=== PATIENT | female | born 1965 | race Caucasian/White ===

== ENCOUNTER 2018-02-10 18:45 | Emergency (ER) | payer MEDICAID ==
[~2018-02-10] VITALS: Ht 157.5 cm; Wt 45.4 kg
[~2018-02-10 18:45] MED LIST: ALPR.25T PO; ALPR0.5T72 PO; ALPR1T PO; AMIT50TA3 PO; ARPZ10T PO; CLOP75TA PO; CPR500T PO; DIVA500T15 PO; DVL250TEC PO; ESCI20TA2 PO; FLUT1DIS26 IH; GABA100T PO; HYDR-1231 PO; HYDR-3583 PO; METR500T PO; NAPR220C PO; NAPR250T2 PO; OMG1KC PO; PATANOL OU; PHN100C PO; PREN1TAB83 PO; PRM25T PO; QUET150T PO; RT-COMBINH INH; TRH2T PO; ZLP10T PO; ZLP5T PO
[2018-02-10] MEDS ORDERED: ONDANSETRON 4 MG (ZOFRAN) ORAL DISSOLVE TAB PO ONE (19:30)
[2018-02-10] MEDS ORDERED: KETOROLAC 30 MG/ML VIAL IM ONE (19:30)
--- NOTE | 2018-02-10 19:32 | ED Chest Pain ---
General Chief Complaint: Chest Wall/Rib Pain Stated Complaint: RIB PAIN L SIDE Nursing Triage Note: PT REPORTS L SIDED RIB PAIN AFTER FRIEND "BEAR HUGGED" HER 4 DAYS AGO. Nursing Sepsis Screen: No Definite Risk Source: patient, other Exam Limitations: no limitations History of Present Illness Date Seen by Provider: Feb 10, 2018 Time Seen by Provider: 19:28 Initial Comments Patient resents to the ER by private conveyance with a chief complaint that 3 days ago she says her cousin picked her up and bear hug her and celebration for some reason and she felt a popping cracking sound in her left chest anterior mid nipple line about rib number 9 or 10. Since that time she's taken 2 Tylenol every day and has not use any icy hot, creams, hot, cold, however she did try wrapping an Sergey bandage around her ribs with minimal improvement in her pain. She says the pain was so severe today that it made her fall to her knees and call and then she vomited because of the pain. She still having a little nausea. 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 Allergies and Home Medications Allergies Coded Allergies: aspirin (Verified Allergy, Unknown, 09/16/05) azithromycin (Unverified Allergy, Unknown, N/V, 06/19/14) Home Medications Alprazolam 1 Mg Tablet, 1 TAB PO TID, (Reported) Escitalopram Oxalate 20 Mg Tablet, 40 MG PO DAILY, (Reported) Fluticasone/Salmeterol 1 Disk Inhp, 1 PUFF IH BID, (Reported) 1 PUFF Hydrocodone Bit/Acetaminophen 1 Tab Tablet, 1 TAB PO Q6H PRN for PAIN Prescribed by: ABRAHAM ALLEN on 03/27/14 1358 Phenytoin Sodium 100 Mg Cap, 100 MG PO BID, (Reported) Patient Home Medication List Home Medication List Reviewed: Yes Review of Systems Constitutional: No chills, No diaphoresis, No fever, No malaise EENTM: No Blurred Vision, No Double Vision Respiratory: Denies Cough; Shortness of Air; Denies Wheezing Cardiovascular: See HPI, Chest Pain; Denies Edema, Denies Irregular Heart Rate Gastrointestinal: Denies See HPI, Denies Constipated, Denies Diarrhea; Nausea, Vomiting (x1) Genitourinary: Denies Drainage, Denies Frequency Musculoskeletal: No joint swelling, No muscle pain, No muscle stiffness Skin: No dryness, No pruritus, No rash Psychiatric/Neurological: Denies Headache, Denies Numbness, Denies Paresthesia Past Akfanrc-Jovvdv-Mxzlge Hx Patient Social History Alcohol Use: Denies Use 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) Smoking Status: Current Everyday Smoker Type Used: Cigarettes Recent Foreign Travel: No Contact w/Someone Who Travel: No Recent Infectious Disease Expo: No Recent Hopitalizations: Yes (DARION) Physical Abuse: No Sexual Abuse: No Mistreated: No Fear: No Immunizations Up To Date Tetanus Booster (TDap): Unknown Past Medical History Surgeries: Yes (gallbladder sling, hernia repair, removed kidney stones) Gallbladder, Hysterectomy Respiratory: Yes Asthma, Emphysema Cardiac: Yes (hypotension) Neurological: No Reproductive Disorders: 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 Physical Exam Vital Signs Vital Signs - First Documented 02/10/18 19:18 Temp 97.7 Pulse 68 Resp 16 B/P (MAP) 112/69 (83) Pulse Ox 95 Capillary Refill : Less Than 3 Seconds Height, Weight, BMI Height: 5'2.00" Weight: 100lbs. oz. 45.139258oq; BMI Method:Stated General Appearance: No Apparent Distress, WD/WN HEENT: PERRL/EOMI, Normal ENT Inspection, Pharynx Normal Neck: Full Range of Motion, Normal Inspection, Non Tender, Supple Respiratory: Lungs Clear, Normal Breath Sounds, No Accessory Muscle Use, No Respiratory Distress, Other (tenderness to palpation ribs 9 and 10 and 11 under the left breast anteriorly.) Cardiovascular: Regular Rate, Rhythm, No Edema Gastrointestinal: Normal Bowel Sounds, Non Tender, Soft Neurologic/Psychiatric: Alert, Oriented x3 Skin: Ecchymosis (left anterior thigh but not on the chest wall) Progress/Results/Core Measures Results/Orders My Orders Orders - DARRICK JAMES Ketorolac Injection (Toradol Injection) (02/10/18 19:30) Ribs, Left 2-3 Views (02/10/18 19:26) Ondansetron Oral Dissolve Tab (Zofran (02/10/18 19:30) Medications Given in ED Current Medications Medications Dose Ordered Sig/Daniel Route Start Time Stop Time Status Last Admin Dose Admin Ketorolac Tromethamine 30 mg ONCE ONCE IM 02/10/18 19:30 02/10/18 19:31 DC 02/10/18 19:45 30 MG Ondansetron HCl 4 mg ONCE ONCE PO 02/10/18 19:30 02/10/18 19:31 DC 02/10/18 19:44 4 MG Vital Signs/I&O 02/10/18 19:18 Temp 97.7 Pulse 68 Resp 16 B/P (MAP) 112/69 (83) Pulse Ox 95 Blood Pressure Mean: 83 Progress Progress Note : Time: 19:32 Progress Note I can hear breath sounds organ he get a chest x-ray to make sure there is not a small pneumothorax given her history of COPD and possible cracked rib. Ketorolac and Zofran. Diagnostic Imaging Diagonstic Imaging: CT Plain Films/CT/US/NM/MRI: chest (l ribs) Comments [facility] [place], [place] NAME: SAVITA BERKOWITZ [facility] REC#: [id number] PT STATUS: REG ER : 1965 PHYSICIAN: DARRICK JAMES MD ADMIT DATE: 02/10/18/ER Draft Date of Exam:02/10/18 RIBS, LEFT 2-3 VIEWS Clinical indication: Patient with left lateral rib pain in mid rib area after friend bear hugged 4 days ago. Exam: X-ray of the left ribs, 3 views. Comparison: X-ray of the right ribs and chest dated 03/27/2014. Findings and impression: There is no rib fracture. There is no significant abnormality seen on this exam. Dictated on workstation # [id number] Dict: 02/10/181948 Trans: 02/10/181953 EMMA [id number] Interpreted by: RAMEZ FRANCISCO MD Electronically signed by: Reviewed: Reviewed by Me Departure Impression Primary Impression: Contusion of rib Qualified Codes: S20.212A - Contusion of left front wall of thorax, initial encounter Disposition: 01 HOME, SELF-CARE Condition: Stable Departure-Patient Inst. Decision time for Depature: 20:13 Referrals: NO,LOCAL PHYSICIAN (PCP/Family) Primary Care Physician Patient Instructions: Bruised Rib (DC) Add. Discharge Instructions: You don't need to wrap your ribs which you may benefit from an ice pack applied directly over the site where it hurts alternated with heat. You can use ibuprofen 800 mg every 8 hours as well as Tylenol 1000 g every 8 hours as needed for pain. Try and preemptively treat your pain so doesn't get so bad. All discharge instructions reviewed with patient and/or family. Voiced understanding. DARRICK JAMES Feb 10, 2018 19:32
--- NOTE | 2018-02-10 19:55 | Diagnostic Imaging Report ---
Clinical indication: Patient with left lateral rib pain in mid rib area after friend bear hugged 4 days ago. Exam: X-ray of the left ribs, 3 views. Comparison: X-ray of the right ribs and chest dated 03/27/2014. Findings and impression: There is no rib fracture. There is no significant abnormality seen on this exam. Dictated by: Dictated on workstation # [id number]
[2018-02-10 20:24] VITALS: BP 115/65
== END 2018-02-10 20:24 | disposition home or self-care (01) ==
LOC: EDUNIT# 18:45 → ER 18:46
DX: S20.212A Contusion of left front wall of thorax, initial encounter (principal); J43.9 Emphysema, unspecified; F32.9 Major depressive disorder, single episode, unspecified; F17.210 Nicotine dependence, cigarettes, uncomplicated; Z96.0 Presence of urogenital implants; Z87.442 Personal history of urinary calculi; Z85.43 Personal history of malignant neoplasm of ovary; Z90.710 Acquired absence of both cervix and uterus; Z88.6 Allergy status to analgesic agent; Z88.0 Allergy status to penicillin; Z79.51 Long term (current) use of inhaled steroids; X50.0XXA Overexertion from strenuous movement or load, initial encounter
CPT/HCPCS: 71100; 96372

== ENCOUNTER → 2018-11-02 | Outpatient (CLI) | payer MEDICAID | LOC: CARD 10:41 | PROVIDERS: ATTEND Internal Medicine Cardiovascular Disease | DX: R07.9 Chest pain, unspecified (principal); I47.2 Ventricular tachycardia; R00.2 Palpitations; R55 Syncope and collapse; F17.220 Nicotine dependence, chewing tobacco, uncomplicated | CPT/HCPCS: 93306 ==

== ENCOUNTER 2022-12-05 12:38 | Emergency (ER) | payer MEDICAID ==
[~2022-12-05] VITALS: Ht 170 cm; Wt 45.0 kg
[2022-12-05 12:40] VITALS: BP 149/91
--- NOTE | 2022-12-05 12:54 | ED Lower Extremity ---
General Chief Complaint: Lower Extremity Stated Complaint: BILAT ANKLE INJ Nursing Triage Note: PT TO RM 5 PER W\\C PT CRYING STATES FELL FROM LADDER WHEN PAINTING AT 0530 THIS AM. PT STATES HAD GOTTEN DIZZY AND FELL FROM LADDER STATES WAS TALLER THAN SHE IS. PT STATES DID HIT HEAD AND MAY HAVE LOC. PT CO OF SEVERE BILATERALY ANKLE PAIN STATES FELL ON STANDING UP Source: patient Exam Limitations: no limitations History of Present Illness Date Seen by Provider: December 05, 2022 Time Seen by Provider: 12:40 Initial Comments 57-year-old female presents to the ED with complaints of bilateral ankle pain and swelling. She states that this morning around 5:30 AM she was on a ladder and was painting, states she got dizzy and fell off the ladder. She states that she often gets dizzy due to heights. She denies any current dizziness. States she thinks she passed out for couple of seconds. States she hit her head, denies any head pain at this time. She reports 1 episode of vomiting, thinks it was due to anxiety. Patient is very anxious at this time. She denies fevers, chest pain, shortness of air, abdominal pain, diarrhea. Past medical history includes peripheral artery disease and heart disease. Allergies and Home Medications Allergies Coded Allergies: aspirin (Verified Allergy, Unknown, 09/16/05) azithromycin (Unverified Allergy, Unknown, N/V, 06/19/14) Patient Home Medication List Home Medication List Reviewed: Yes Albuterol/Ipratropium (Combivent Common Canister) 1 Puff Puff, 1 PUFF INH, (Reported) Entered as Reported by: MANOHAR METCALF on 02/16/14 0726 Alprazolam (Xanax) 1 Mg Tablet, 1 TAB PO TID, (Reported) Entered as Reported by: BESS BOBO on 03/30/12 1058 Escitalopram Oxalate (Lexapro) 20 Mg Tablet, 40 MG PO DAILY, (Reported) Entered as Reported by: JAGDISH DARLING on 02/03/11 0751 Fluticasone/Salmeterol (Advair 250 Mcg/50 Mcg 60's) 1 Disk Inhp, 1 PUFF IH BID, (Reported) Entered as Reported by: SARAH INTERIANO on 03/18/11 1435 Hydrocodone Bit/Acetaminophen (Hydrocodone-Apap 5-325 Tablet) 1 Tab Tablet, 1 TAB PO Q6H PRN for PAIN Prescribed by: ABRAHAM ALLEN on 03/27/14 1358 Hydrocodone/Acetaminophen (Hydrocodone-Acetamin 10-325 mg) 10 Mg-325 Mg Tablet, 1 EACH PO Q6H Prescribed by: Phoebe Riggs on 12/05/22 1449 Phenytoin Sodium (Dilantin Capsule) 100 Mg Cap, 100 MG PO BID, (Reported) Entered as Reported by: MANOHAR METCALF on 02/16/14 0728 Review of Systems Constitutional: see HPI Past Siwclez-Fgkmkk-Qzpwxi Hx Patient Social History Tobacco Use?: Yes Tobacco type used: Cigarettes Smoking Status: Current Everyday Smoker Substance use?: No Alcohol Use?: No Pt feels they are or have been: No Immunizations Up To Date Tetanus Booster (TDap): Unknown Influenza Vaccine Up-to-Date: No; Not Current First/Initial COVID19 Vaccinat: YES Second COVID19 Vaccination Ric: YES Past Medical History Surgery/Hospitalization HX: HYST, GB, APPY,HERNIA Surgeries: Yes (gallbladder sling, hernia repair, removed kidney stones) Gallbladder, Hysterectomy Respiratory: Yes Asthma, Emphysema Cardiac: Yes (hypotension) Neurological: No 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 Physical Exam Vital Signs Vital Signs - First Documented 12/05/22 12:40 Temp 36.5 Pulse 97 Resp 18 B/P (MAP) 149/91 (110) Pulse Ox 99 Capillary Refill : Less Than 3 Seconds Height, Weight, BMI Height: 5'2.00" Weight: 100lbs. oz. 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 as tested, alert, normal mood/affect Skin: normal color, warm/dry Progress/Results/Core Measures Results/Orders My Orders Orders - PHOEBE RIGGS APRN Ekg Tracing (12/05/22 12:51) Ct Head/Cervical Spine Wo (12/05/22 12:51) Ankle, Bilateral, 3 Views (12/05/22 12:51) Ekg Tracing (12/05/22 12:54) Hydrocodone/Apap 10/325 Tablet (Lortab 1 (12/05/22 13:00) Lorazepam Tablet (Ativan Tablet) (12/05/22 13:00) Ct Extremity Lower Right Wo (12/05/22 13:34) Sergey Bandage (12/05/22 14:45) Ortho Glass (12/05/22 14:45) Crutches (12/05/22 14:45) Medications Given in ED Current Medications Medications Dose Ordered Sig/Daniel Route Start Time Stop Time Status Last Admin Dose Admin Acetaminophen/ Hydrocodone Bitart 1 ea ONCE ONCE PO 12/05/22 13:00 12/05/22 13:01 DC 12/05/22 13:10 1 EA Lorazepam 0.5 mg ONCE ONCE PO 12/05/22 13:00 12/05/22 13:01 DC 12/05/22 13:10 0.5 MG Vital Signs/I&O 12/05/22 12:40 Temp 36.5 Pulse 97 Resp 18 B/P (MAP) 149/91 (110) Pulse Ox 99 Blood Pressure Mean: 110 Progress Progress Note : Progress Note Patient seen and evaluated, moderate distress due to pain and anxiety. Work-up initiated including CBC, CMP, magnesium, EKG, CT head and C-spine, and bilateral ankle x-rays. Fentanyl ordered for pain. Patient very anxious about blood draw, patient refusing to allow nurse to start IV or draw labs. I discussed the reason for the blood work with patient. Patient states that she often gets dizzy with heights, states this is why she got dizzy. She does not want lab work drawn. She just wants a pill for her pain. She states her only concern is her ankle pain. 1335 X-ray reviewed. Nondisplaced acute fracture of the central body of the right calcaneus. No fracture of the left ankle or hindfoot. CT of the right lower extremity ordered per suggestion of the radiologist. 1419 CT is reviewed. No acute intracranial hemorrhage on CT head. Degenerative changes of the cervical spine with no acute fracture. Mild generalized. Interval volume loss with findings of chronic microvascular disease. CT right lower extremity confirms presence of tongue type calcaneal fracture with minimal impaction of the posterior tuberosity. Achilles is intact. Results discussed with patient. 1425 I called and spoke with Dr. Negrete, orthopedics. He recommends placing patient in a short posterior splint with a lot of padding, for patient to be nonweightbearing, and to follow-up with them in clinic. 1440 patient placed in splint as directed by Dr. Negrete. Left ankle placed in Sergey bandage, patient likely sprained this ankle. Will discharge with crutches and instructions to remain nonweightbearing on the right foot. Will discharge with oral pain medicine. Patient instructed to follow-up with orthopedics. Discharge instructions and return precautions provided. 1509 patient had a lot of difficulty walking with crutches due to right calcaneus fracture and left ankle sprain. I wanted to admit patient due to difficulty walking with crutches. Patient is adamant that she is not admitted. Patient will sign out AGAINST MEDICAL ADVICE. I discussed the risks of leaving AGAINST MEDICAL ADVICE including risks of falling, further injuries, head injury, brain bleed. Patient verbalized understanding. Patient is alert and oriented x4 and is of sound mind. Patient was able to walk with crutches with some difficulty from bed to just outside her room. Patient signed AMA form with nursing staff. Patient given a walking boot for the left ankle to help with ambulation. Initial ECG Impression Date: December 05, 2022 Initial ECG Impression Time: 13:14 Initial ECG Rate: 86 Initial ECG Rhythm: Normal Sinus Initial ECG Intervals: Normal Initial ECG Impression: Nonspecific Changes Initial ECG Comparisson: Changed Comment Insignificant Q waves, no ST elevation or T wave inversion. Diagnostic Imaging Diagonstic Imaging: CT Plain Films/CT/US/NM/MRI: c-spine, head Comments [facility] [place] [place] NAME: SAVITA BERKOWITZ [facility] REC#: [id number] PT STATUS: REG ER : 1965 PHYSICIAN: PHOEBE RIGGS APRN ADMIT DATE: 12/05/22/ER Draft Date of Exam:12/05/22 CT HEAD/CERVICAL SPINE WO PROCEDURE: CT head and CT cervical spine without contrast. TECHNIQUE: Multiple contiguous axial images were obtained through the brain and cervical spine without the use of intravenous contrast. Sagittal and coronal reformations through the cervical spine were then performed. Auto Exposure Controls were utilized during the CT exam to meet ALARA standards for radiation dose reduction. INDICATION: Fall, head and neck injuries. COMPARISON: None. FINDINGS: CT HEAD: The ventricles and cortical sulci are mildly prominent, likely from generalized parenchymal volume loss. There is no midline shift or mass effect. No acute intracranial hemorrhage is seen. There is no CT evidence of acute territorial ischemia. There are scattered areas of hypoattenuation in the white matter, likely from chronic microvascular disease. The calvarium appears intact. Visualized paranasal sinuses are clear. CT CERVICAL SPINE: There is grade 1 anterolisthesis at C4-C5 and C6-C7. Vertebral body heights are preserved. There is advanced facet arthropathy on the right. No bony fragments or hyperdense fluid collections are seen in the spinal canal. No acute fracture is seen. There is scarring and emphysematous change in the lung apices. IMPRESSION: 1. No acute intracranial hemorrhage or CT evidence of acute territorial ischemia. 2. Degenerative changes in the cervical spine with no acute fracture seen. 3. Mild generalized parenchymal volume loss with findings of chronic microvascular disease, somewhat greater than expected for age. Dictated on workstation # [id number] Dict: 12/05/22 1333 Trans: 12/05/22 1345 [id number] [id number] Interpreted by: JULIO MUNOZ MD Electronically signed by: Tasianstic Imaging: Xray Plain Films/CT/US/NM/MRI: ankle Comments [facility] [place], [place] NAME: ROSAMARIA BERKOWITZSTEPHANIE Robertson [facility] REC#: [id number] PT STATUS: REG ER : 1965 PHYSICIAN: PHOEBE RIGGS APRN ADMIT DATE: 12/05/22/ER Draft Date of Exam:12/05/22 ANKLE, BILATERAL, 3 VIEWS ANKLE, BILATERAL, 3 VIEWS INDICATION: Bilateral ankle pain. COMPARISON: None available. TECHNIQUE: 3 views of each ankle for total 6 views FINDINGS: Both ankle are normal in alignment. There is no osteochondral lesion talar dome on either side. Lucency across the central body of the right calcaneus is likely from a nondisplaced calcaneal fracture. No left-sided calcaneal fracture. Soft tissue swelling is present in the plantar surface of the right heel fat pad. IMPRESSION: 1. Acute fracture in the central body of the right calcaneus is nondisplaced. CT of the right ankle without contrast is recommended to more completely evaluate this fracture. 2. No fracture in the left ankle or hindfoot. Dictated on workstation # [id number] Dict: 12/05/22 1324 Trans: 12/05/22 1328 [id number] Interpreted by: DENG MUHAMMAD MD Electronically signed by: Trinidad[place]ron Imaging: CT Plain Films/CT/US/NM/MRI: leg Comments [facility] [place], [place] NAME: SHOSAVITA [facility] REC#: [id number] PT STATUS: REG ER : 1965 PHYSICIAN: PHOEBE RIGGS APRN ADMIT DATE: 12/05/22/ER Draft Date of Exam:12/05/22 CT EXTREMITY LOWER RIGHT WO PROCEDURE: CT right lower extremity without contrast. TECHNIQUE: Axially acquired CT was obtained through the right lower extremity without intravenous contrast. Coronal and sagittal reformations were also performed. Auto Exposure Controls were utilized during the CT exam to meet ALARA standards for radiation dose reduction. INDICATION: Heel pain after injury. COMPARISON: Radiographs from earlier same day. FINDINGS: There is a mildly comminuted fracture in the central aspect of the calcaneus with fracture lines extending out the posterior aspect of the calcaneal tuberosity in a tongue-type fracture. A single fracture line enters the medial margin of the posterior subtalar facet but there is no joint depression. The fracture does extend along the base of the sustentaculum talus, although this fragment is not displaced. There is minimal height loss of the posterior tuberosity. The anterior process of the calcaneus remains intact. The talus is intact. No osteochondral lesion in the talar dome. Achilles tendon remains intact. No ankle joint effusion. No fracture within the visualized aspects of the midfoot. IMPRESSION: 1. CT confirms the presence of a tongue-type calcaneal fracture with minimal impaction of the posterior tuberosity. There is only a single fracture line that enters the posterior subtalar facet but there is no joint depression. 2. Intact Achilles. Dictated on workstation # [id number] Dict: 12/05/22 1352 Trans: 12/05/22 1411 [id number] [id number] Interpreted by: DENG MUHAMMAD MD Electronically signed by: Departure Impression Primary Impression: Sprain and strain of ankle Additional Impression: Calcaneus fracture, right Qualified Codes: S92.001A - Unspecified fracture of right calcaneus, initial encounter for closed fracture Disposition: AGAINST MEDICAL ADVICE Condition: Stable Departure-Patient Inst. Decision time for Depature: 14:42 Referrals: NO,LOCAL PHYSICIAN (PCP) Primary Care Physician JERO NEGRETE MD Patient Instructions: Heel Fracture Add. Discharge Instructions: Keep the splint in place, do not remove it. Call orthopedics today or Thursday to schedule appointment for next week. Do not get the splint wet, cover with plastic wrap when showering. Do not bear any weight on your right foot. Use the crutches to keep weight off your foot. Try to rest your left ankle as well. You may use ice for 20 minutes at a time several times a day on your left ankle. Take pain medication as needed, it can cause constipation. You may add an [id number] stool softener like docusate sodium to help with this. You may also take ibuprofen 800 mg every 8 hours as needed for pain. Return for severe pain, numbness or tingling in your toes, discoloration of your toes, or any other new, concerning, or worsening symptoms. All discharge instructions reviewed with patient and/or family. Voiced understanding. Scripts Hydrocodone/Acetaminophen (Hydrocodone-Acetamin 10-325 mg) 10 Mg-325 Mg Tablet 1 EACH PO Q6H, #20 TAB 0 Refills Prov: PHOEBE RIGGS APRN 12/05/22 PHOEBE RIGGS APRN December 05, 2022 12:54
[2022-12-05] MEDS ORDERED: LORazepam 0.5 MG (ATIVAN) TABLET PO ONE (13:00)
[2022-12-05] MEDS ORDERED: fentaNYL INJ 100 MCG/2 ML AMP IVP ONE (13:00)
--- NOTE | 2022-12-05 13:28 | Diagnostic Imaging Report ---
ANKLE, BILATERAL, 3 VIEWS INDICATION: Bilateral ankle pain. COMPARISON: None available. TECHNIQUE: 3 views of each ankle for total 6 views FINDINGS: Both ankle are normal in alignment. There is no osteochondral lesion talar dome on either side. Lucency across the central body of the right calcaneus is likely from a nondisplaced calcaneal fracture. No left-sided calcaneal fracture. Soft tissue swelling is present in the plantar surface of the right heel fat pad. IMPRESSION: 1. Acute fracture in the central body of the right calcaneus is nondisplaced. CT of the right ankle without contrast is recommended to more completely evaluate this fracture. 2. No fracture in the left ankle or hindfoot. Dictated by: Dictated on workstation # [id number]
--- NOTE | 2022-12-05 13:46 | Diagnostic Imaging Report ---
PROCEDURE: CT head and CT cervical spine without contrast. TECHNIQUE: Multiple contiguous axial images were obtained through the brain and cervical spine without the use of intravenous contrast. Sagittal and coronal reformations through the cervical spine were then performed. Auto Exposure Controls were utilized during the CT exam to meet ALARA standards for radiation dose reduction. INDICATION: Fall, head and neck injuries. COMPARISON: None. FINDINGS: CT HEAD: The ventricles and cortical sulci are mildly prominent, likely from generalized parenchymal volume loss. There is no midline shift or mass effect. No acute intracranial hemorrhage is seen. There is no CT evidence of acute territorial ischemia. There are scattered areas of hypoattenuation in the white matter, likely from chronic microvascular disease. The calvarium appears intact. Visualized paranasal sinuses are clear. CT CERVICAL SPINE: There is grade 1 anterolisthesis at C4-C5 and C6-C7. Vertebral body heights are preserved. There is advanced facet arthropathy on the right. No bony fragments or hyperdense fluid collections are seen in the spinal canal. No acute fracture is seen. There is scarring and emphysematous change in the lung apices. IMPRESSION: 1. No acute intracranial hemorrhage or CT evidence of acute territorial ischemia. 2. Degenerative changes in the cervical spine with no acute fracture seen. 3. Mild generalized parenchymal volume loss with findings of chronic microvascular disease, somewhat greater than expected for age. Dictated by: Dictated on workstation # [id number]
--- NOTE | 2022-12-05 14:12 | Diagnostic Imaging Report ---
PROCEDURE: CT right lower extremity without contrast. TECHNIQUE: Axially acquired CT was obtained through the right lower extremity without intravenous contrast. Coronal and sagittal reformations were also performed. Auto Exposure Controls were utilized during the CT exam to meet ALARA standards for radiation dose reduction. INDICATION: Heel pain after injury. COMPARISON: Radiographs from earlier same day. FINDINGS: There is a mildly comminuted fracture in the central aspect of the calcaneus with fracture lines extending out the posterior aspect of the calcaneal tuberosity in a tongue-type fracture. A single fracture line enters the medial margin of the posterior subtalar facet but there is no joint depression. The fracture does extend along the base of the sustentaculum talus, although this fragment is not displaced. There is minimal height loss of the posterior tuberosity. The anterior process of the calcaneus remains intact. The talus is intact. No osteochondral lesion in the talar dome. Achilles tendon remains intact. No ankle joint effusion. No fracture within the visualized aspects of the midfoot. IMPRESSION: 1. CT confirms the presence of a tongue-type calcaneal fracture with minimal impaction of the posterior tuberosity. There is only a single fracture line that enters the posterior subtalar facet but there is no joint depression. 2. Intact Achilles. Dictated by: Dictated on workstation # [id number]
[2022-12-05] MEDS ORDERED: HYDR-3820 PO (14:49)
== END 2022-12-05 15:09 | disposition home or self-care (01) ==
LOC: EDUNIT# 12:38 → ER 12:40
DX: S92.014A Nondisplaced fracture of body of right calcaneus, initial encounter for closed fracture (principal); S93.402A Sprain of unspecified ligament of left ankle, initial encounter; S96.912A Strain of unspecified muscle and tendon at ankle and foot level, left foot, initial encounter; F17.210 Nicotine dependence, cigarettes, uncomplicated; Z88.5 Allergy status to narcotic agent; W11.XXXA Fall on and from ladder, initial encounter; W22.8XXA Striking against or struck by other objects, initial encounter
CPT/HCPCS: 70450; 72125; 73700

== ENCOUNTER → 2022-12-18 | Outpatient (CLI) | payer MEDICAID ==
[~2022-12-18] MED LIST changes: +HYDR-3820 PO
== END ==
LOC: ORTHO 14:12
PROVIDERS: ATTEND Orthopaedic Surgery
DX: S92.001A Unspecified fracture of right calcaneus, initial encounter for closed fracture (principal); S93.402A Sprain of unspecified ligament of left ankle, initial encounter
CPT/HCPCS: 99203

== ENCOUNTER → 2023-01-20 | Outpatient (CLI) | payer MEDICAID ==
--- NOTE | 2023-01-20 17:36 | Diagnostic Imaging Report ---
CLINICAL INDICATIONS: Followup calcaneal fracture. EXAM: X-ray of the right calcaneus, 2 views. COMPARISON: CT scan of the right lower extremity without contrast dated 12/05/2012. FINDINGS AND IMPRESSION: There is a comminuted, nondisplaced fracture involving the calcaneus with areas of sclerosis seen along the fracture regions related to progression of healing. There is no other bony abnormality seen. Dictated by: Dictated on workstation # [id number]
== END ==
LOC: ORTHO 13:49
PROVIDERS: ATTEND Orthopaedic Surgery
DX: S92.014D Nondisplaced fracture of body of right calcaneus, subsequent encounter for fracture with routine healing (principal); X58.XXXD Exposure to other specified factors, subsequent encounter
CPT/HCPCS: 73650; 99213

== ENCOUNTER → 2023-02-19 | Outpatient (CLI) | payer MEDICAID ==
--- NOTE | 2023-02-19 11:50 | Diagnostic Imaging Report ---
Examination: Right hip two views. HISTORY: Fracture. COMPARISON: 01/20/2023. FINDINGS: The fracture lines in the right calcaneus are less apparent than on prior exam. No change in alignment. No new fracture. No dislocation. IMPRESSION: 1. Decreased conspicuity of fracture lines in the right calcaneus with unchanged alignment and no new fracture. Dictated by: Dictated on workstation # [id number]
== END ==
LOC: ORTHO 10:53
PROVIDERS: ATTEND Orthopaedic Surgery
DX: S92.014D Nondisplaced fracture of body of right calcaneus, subsequent encounter for fracture with routine healing (principal); X58.XXXD Exposure to other specified factors, subsequent encounter
CPT/HCPCS: 73650; G0463; 99213